=== PATIENT | male | born 1970 | race Caucasian/White ===

== ENCOUNTER 2024-12-24 13:19 | Inpatient (IN) | payer MEDICAID ==
[~2024-12-24] VITALS: Ht 175.3 cm; Wt 67.6 kg
[2024-12-24 14:50] LABS: BASOPHILS # (AUTO) 0.1 X10'3 (0-0.2); BASOPHILS % (AUTO) 1.1 % (0-1); EOSINOPHILS # (AUTO) 0.1 X10'3 (0-0.9); EOSINOPHILS % (AUTO) 1.3 % (0-6); HEMATOCRIT 41.1 % (42.0-52.0); HEMOGLOBIN 12.9 g/dl (14.0-17.9); LYMPHOCYTES # (AUTO) 0.7 X10'3 (1.1-4.8); LYMPHOCYTES % (AUTO) 6.3 % (21-51); MEAN CORPUSCULAR HEMOGLOBIN 31.5 PG (27.0-31.0); MEAN CORPUSCULAR HGB CONC 31.5 g/dL (33.0-36.5); MEAN CORPUSCULAR VOLUME 99.7 FL (78-98); MEAN PLATELET VOLUME 8.8 FL (7.4-10.4); MONOCYTES # (AUTO) 1.1 X10'3 (0-0.9); MONOCYTES % (AUTO) 9.7 % (2-12); NEUTROPHILS # (AUTO) 9.3 X10'3 (1.8-7.7); NEUTROPHILS % (AUTO) 81.6 % (42-75); PLATELET COUNT 177 X10'3 (140-440); RED BLOOD COUNT 4.12 X10'6 (4.70-6.10); RED CELL DISTRIBUTION WIDTH 16.6 % (11.5-14.5); WHITE BLOOD COUNT 11.3 X10'3 (4.5-11.0)
[2024-12-24 14:56] LABS: BILIRUBIN,URINE NEGATIVE (Neg); CLARITY,URINE CLEAR (Clear); COLOR,URINE YELLOW (Yellow); GLUCOSE, URINE NEGATIVE (Neg); KETONES,URINE TRACE mg/dl (Neg); LEUKOCYTE ESTERASE ,URINE NEGATIVE (Neg); NITRITES, URINE NEGATIVE (Neg); OCCULT BLOOD,URINE MODERATE (Neg); PH,URINE 5.5 (4.8-8.0); PROTEIN,URINE 100 mg/dl (Neg); UROBILINOGEN,URINE 0.2 E.U/dL (0.2-1.0)
[2024-12-24 14:58] LABS: UA COLLECTION TYPE VOIDED
[2024-12-24 14:59] LABS: AMORPHOUS URATES 1+; BACTERIA,URINE NONE SEEN /HPF (Neg); MUCUS STRANDS FEW /LPF (Neg); SQUAMOUS EPITHELIAL CELL,UR FEW /LPF (FEW); WBC,URINE 0-4 /HPF (0-4)
[2024-12-24 15:05] LABS: ALANINE AMINOTRANSFERASE 67 U/L (12-78); ALBUMIN 3.2 G/DL (3.4-5.0); ALBUMIN/GLOBULIN RATIO 0.8 (1.1-1.5); ALKALINE PHOSPHATASE 172 IU/L (46-116); ANION GAP 4 (8-16); ASPARTATE AMINO TRANSFERASE 46 U/L (10-37); BILIRUBIN,TOTAL 0.7 MG/DL (0.1-1.0); BLOOD UREA NITROGEN 71 MG/DL (7-18); BUN/CREATININE RATIO 23.7 (10.0-20.0); CALCIUM 8.8 MG/DL (8.5-10.1); CHLORIDE 94 MMOL/L (99-107); GLUCOSE 155 MG/DL (70-104); POTASSIUM 5.8 MMOL/L (3.5-5.1); SODIUM 129 MMOL/L (135-145); TOTAL CARBON DIOXIDE 31.1 MMOL/L (24-32); TOTAL PROTEIN 7.3 G/DL (6.4-8.2); eCRCL 27 ML/MIN; eGFR 22 ML/MIN
[2024-12-24 15:12] LABS: PRO BRAIN NATRIURETIC PEPTIDE 8101 PG/ML (0-125)
[2024-12-24] MEDS ORDERED: acetaminophen 325mg tablet PO PRN (17:30)
[2024-12-24] MEDS ORDERED: magnesium sulf-water 4G/100mL 100 ML IV PRN (17:30)
[2024-12-24] MEDS ORDERED: magnesium sulf-water 2g/50mL 50 ML IV PRN (17:30)
[2024-12-24] MEDS ORDERED: ondansetron/PF 4mg/2ml inj IV PRN (17:30)
[2024-12-24] MEDS ORDERED: potassium Cl 40MEQ/1/2NS 520ml 520 ML IV PRN (17:30)
[2024-12-24] MEDS ORDERED: magnesium Cl slow-release 64mg tablet PO PRN (17:30)
[2024-12-24] MEDS ORDERED: potassium Cl 20 mEq SR tablet PO PRN ×2 (17:30)
[2024-12-24] MEDS: CALCIUM GLUC 1gm/50ml NACL,iso 50 ML IV ONE (18:20)
[2024-12-24] MEDS: dextrose 50%-water 50ml dispensing syringe IV ONE (18:20)
[2024-12-24] MEDS: insulin regular, human 10 units/0.1 ml syringe SQ ONE (18:22)
[2024-12-24] MEDS: albuterol 2.5 MG/3 ML nebule NEB ONE (18:29)
[2024-12-24 18:33] VITALS: PULSE 86; RESP 18; O2SAT 95
[2024-12-24 18:37] VITALS: PULSE 87; RESP 20; O2SAT 100
[2024-12-24] MEDS: normal saline 1000ml 1,000 ML IV SCH (18:37)
[2024-12-24] MEDS: CefTRIAXone/D5W-Rocephin 1gm 50 ML IV SCH (19:23)
[2024-12-24] MEDS: heparin, porcine 5000 units/ml vial SQ SCH (19:27)
[2024-12-24] MEDS: furosemide 10 MG/1 ML 10ml inj IV SCH (19:31)
[2024-12-24 19:52] LABS: APTT 31 SECONDS (22-32); INR 1.3 INR; PROTHROMBIN TIME 13.7 SECONDS (9.0-12.0)
[2024-12-24] MEDS: acetaminophen 325mg tablet PO SCH (23:58)
[2024-12-25] VITALS (13 sets, daily range): BP systolic 87–124; BP diastolic 58–90; PULSE 80–89; RESP 10–18; TEMP 97.2–98; O2SAT 92–99
[2024-12-25] MEDS ORDERED: albuterol 2.5 MG/3 ML nebule NEB PRN (05:45)
[2024-12-25 09:20] LABS: BASOPHILS % (AUTO) 0.1 % (0-1); EOSINOPHILS # (AUTO) 0.1 X10'3 (0-0.9); EOSINOPHILS % (AUTO) 1.1 % (0-6); HEMATOCRIT 39.3 % (42.0-52.0); LYMPHOCYTES # (AUTO) 0.7 X10'3 (1.1-4.8); LYMPHOCYTES % (AUTO) 6.6 % (21-51); MEAN CORPUSCULAR HEMOGLOBIN 32.3 PG (27.0-31.0); MEAN CORPUSCULAR VOLUME 97.7 FL (78-98); MEAN PLATELET VOLUME 8.1 FL (7.4-10.4); MONOCYTES % (AUTO) 8.8 % (2-12); NEUTROPHILS # (AUTO) 9.1 X10'3 (1.8-7.7); NEUTROPHILS % (AUTO) 83.4 % (42-75); PLATELET COUNT 181 X10'3 (140-440); RED BLOOD COUNT 4.02 X10'6 (4.70-6.10); RED CELL DISTRIBUTION WIDTH 15.9 % (11.5-14.5); WHITE BLOOD COUNT 10.9 X10'3 (4.5-11.0)
[2024-12-25 09:31] LABS: ALANINE AMINOTRANSFERASE 61 U/L (12-78); ALBUMIN 3.1 G/DL (3.4-5.0); ALBUMIN/GLOBULIN RATIO 0.8 (1.1-1.5); ALKALINE PHOSPHATASE 166 IU/L (46-116); ANION GAP 5 (8-16); BILIRUBIN,TOTAL 0.9 MG/DL (0.1-1.0); BLOOD UREA NITROGEN 75 MG/DL (7-18); CHLORIDE 96 MMOL/L (99-107); CHOL/HDL RATIO 2.9 (0.00-4.99); CHOLESTEROL 157 MG/DL (0-200); CREATININE 2.88 MG/DL (0.60-1.10); GLUCOSE 105 MG/DL (70-104); HDL CHOLESTEROL 54 MG/DL (35-60); LACTATE DEHYDROGENASE 253 U/L (85-227); LDL CHOLESTEROL 87 MG/DL (50-100); POTASSIUM 5.8 MMOL/L (3.5-5.1); SODIUM 132 MMOL/L (135-145); TOTAL CARBON DIOXIDE 30.8 MMOL/L (24-32); TOTAL PROTEIN 7.2 G/DL (6.4-8.2); TRIGLYCERIDES 46 MG/DL (20-135); eCRCL 29 ML/MIN; eGFR 23 ML/MIN
[2024-12-25 09:32] LABS: ASPARTATE AMINO TRANSFERASE 38 U/L (10-37)
[2024-12-25] MEDS ORDERED: albuterol 2.5 MG/3 ML nebule NEB ONE (10:10)
[2024-12-25 11:05] LABS: HIV ANTIBODY 1&2 RAPID NON-REACTIVE (Neg)
[2024-12-25 13:00] LABS: GLUCOSE,BODY FLUID 108 MG/DL; LDH,BODY FLUID 80 U/L
[2024-12-25 13:08] LABS: BFSOURCE PLEURAL FLD; PLEURAL FLUID PH 7.405 (7.63-7.65)
[2024-12-25 13:18] LABS: TOTAL PROTEIN,BODY FLUID < 2.0 G/DL
[2024-12-25 13:20] LABS: BF RBC COUNT 920 /CU MM; BF WBC COUNT 360 /CU MM (0-1000); BFAPPEAR HAZY; BFCOLOR YELLOW; BFSOURCE PLEURAL FLD; BFVOLUME 55 ML; LYMPHOCYTES,BODY FLUID 46 %; MONOCYTES,BODY FLUID 24 %; NEUTROPHILS,BODY FLUID 30 %
[2024-12-25 13:21] LABS: BF MESOTHELIAL CELLS MODERATE
[2024-12-25] MEDS: CefTRIAXone/D5W-Rocephin 1gm 50 ML IV SCH (20:28)
[2024-12-25] MEDS: carVEDilol 3.125mg tablet PO SCH (20:49)
[2024-12-25] MEDS: dextrose 50%-water 50ml dispensing syringe IV ONE (21:22)
[2024-12-25] MEDS: sodium polystyrene sulfonate 15gm/60ml oral suspension PO ONE (21:32)
[2024-12-25] MEDS: CALCIUM GLUC 1gm/50ml NACL,iso 50 ML IV ONE (21:32)
[2024-12-25] MEDS: insulin regular, human 10 units/0.1 ml syringe IV ONE (21:43)
[2024-12-26] VITALS (10 sets, daily range): BP systolic 98–122; BP diastolic 60–84; PULSE 86–97; RESP 13–20; TEMP 97.3–97.8; O2SAT 90–100
[2024-12-26 08:38] LABS: BASOPHILS # (AUTO) 0.1 X10'3 (0-0.2); BASOPHILS % (AUTO) 1.1 % (0-1); EOSINOPHILS # (AUTO) 0.2 X10'3 (0-0.9); EOSINOPHILS % (AUTO) 1.3 % (0-6); HEMATOCRIT 42.8 % (42.0-52.0); HEMOGLOBIN 13.7 g/dl (14.0-17.9); LYMPHOCYTES # (AUTO) 0.6 X10'3 (1.1-4.8); LYMPHOCYTES % (AUTO) 4.8 % (21-51); MEAN CORPUSCULAR HEMOGLOBIN 31.7 PG (27.0-31.0); MEAN CORPUSCULAR HGB CONC 32.1 g/dL (33.0-36.5); MEAN CORPUSCULAR VOLUME 98.9 FL (78-98); MONOCYTES # (AUTO) 1.6 X10'3 (0-0.9); MONOCYTES % (AUTO) 12.9 % (2-12); NEUTROPHILS # (AUTO) 10.1 X10'3 (1.8-7.7); NEUTROPHILS % (AUTO) 79.9 % (42-75); PLATELET COUNT 148 X10'3 (140-440); RED BLOOD COUNT 4.32 X10'6 (4.70-6.10); RED CELL DISTRIBUTION WIDTH 16.4 % (11.5-14.5); WHITE BLOOD COUNT 12.6 X10'3 (4.5-11.0)
[2024-12-26 09:10] LABS: ALANINE AMINOTRANSFERASE 56 U/L (12-78); ALBUMIN 2.8 G/DL (3.4-5.0); ALBUMIN/GLOBULIN RATIO 0.7 (1.1-1.5); ALKALINE PHOSPHATASE 162 IU/L (46-116); ANION GAP 9 (8-16); ASPARTATE AMINO TRANSFERASE 47 U/L (10-37); BLOOD UREA NITROGEN 77 MG/DL (7-18); BUN/CREATININE RATIO 24.4 (10.0-20.0); CHLORIDE 96 MMOL/L (99-107); CREATININE 3.15 MG/DL (0.60-1.10); GLUCOSE 82 MG/DL (70-104); POTASSIUM 5.8 MMOL/L (3.5-5.1); SODIUM 133 MMOL/L (135-145); TOTAL CARBON DIOXIDE 28.2 MMOL/L (24-32); TOTAL PROTEIN 6.7 G/DL (6.4-8.2); eCRCL 26 ML/MIN; eGFR 21 ML/MIN
[2024-12-26 09:35] LABS: ANTINUCLEAR ANTIBODIES Negative (Negative)
[2024-12-26 10:35] LABS: SODIUM,URINE RANDOM < 15 MEQ/L; TOTAL PROTEIN,URINE RANDOM 96.1 MG/DL
[2024-12-26] MEDS: insulin regular, human 10 units/0.1 ml syringe IV ONE (12:39)
[2024-12-26] MEDS: dextrose 50%-water 50ml dispensing syringe IV ONE (12:40)
[2024-12-26] MEDS: sodium polystyrene sulfonate 15gm/60ml oral suspension PO ONE (12:40)
[2024-12-26] MEDS: albuterol 2.5 MG/3 ML nebule NEB ONE (12:44)
[2024-12-26] MEDS: SODIUM ZIRCONIUM CYCLOSILICATE 10 GM POWD.PACK PO SCH (17:09)
[2024-12-26] MEDS: azithromycin/NS 500mg/250ml 250 ML IV SCH (17:10)
[2024-12-26 17:13] LABS: ALBUMIN 2.2 G/DL (3.4-5.0); ANION GAP 9 (8-16); BLOOD UREA NITROGEN 76 MG/DL (7-18); BUN/CREATININE RATIO 23.2 (10.0-20.0); CALCIUM 8.4 MG/DL (8.5-10.1); CHLORIDE 96 MMOL/L (99-107); CREATININE 3.27 MG/DL (0.60-1.10); GLUCOSE 80 MG/DL (70-104); POTASSIUM 4.5 MMOL/L (3.5-5.1); SODIUM 130 MMOL/L (135-145); TOTAL CARBON DIOXIDE 24.9 MMOL/L (24-32); eCRCL 25 ML/MIN; eGFR 20 ML/MIN
[2024-12-26] MEDS ORDERED: apixaban 5mg tablet PO SCH (20:00)
[2024-12-26] MEDS ORDERED: furosemide 20 MG/2 ML vial IV SCH (20:00)
[2024-12-26] MEDS: heparin, porcine 5000 units/ml vial SQ SCH (21:19)
[2024-12-27] VITALS (13 sets, daily range): BP systolic 102–135; BP diastolic 66–97; PULSE 77–104; RESP 12–21; TEMP 97.5–98.6; O2SAT 94–97
[2024-12-27 05:42] LABS: ANTISTREPTOLYSIN O AB 52.7 IU/mL (0.0-200.0); HEP A AB, IGM Negative (Negative); HEP B CORE AB, IGM Negative (Negative); HEPATITIS C VIRUS ANTIBODY Non Reactive (Non Reactive)
[2024-12-27 07:54] LABS: BASOPHILS # (AUTO) 0.3 X10'3 (0-0.2); EOSINOPHILS # (AUTO) 0.2 X10'3 (0-0.9); EOSINOPHILS % (AUTO) 2.1 % (0-6); HEMATOCRIT 38.4 % (42.0-52.0); HEMOGLOBIN 12.5 g/dl (14.0-17.9); LYMPHOCYTES # (AUTO) 0.6 X10'3 (1.1-4.8); LYMPHOCYTES % (AUTO) 7.1 % (21-51); MEAN CORPUSCULAR HEMOGLOBIN 31.6 PG (27.0-31.0); MEAN CORPUSCULAR HGB CONC 32.6 g/dL (33.0-36.5); MEAN CORPUSCULAR VOLUME 96.9 FL (78-98); MEAN PLATELET VOLUME 7.9 FL (7.4-10.4); MONOCYTES # (AUTO) 0.9 X10'3 (0-0.9); MONOCYTES % (AUTO) 11.1 % (2-12); NEUTROPHILS # (AUTO) 6.5 X10'3 (1.8-7.7); NEUTROPHILS % (AUTO) 76.4 % (42-75); PLATELET COUNT 177 X10'3 (140-440); RED BLOOD COUNT 3.96 X10'6 (4.70-6.10); RED CELL DISTRIBUTION WIDTH 15.8 % (11.5-14.5); WHITE BLOOD COUNT 8.5 X10'3 (4.5-11.0)
[2024-12-27] MEDS ORDERED: furosemide 20 MG/2 ML vial IV SCH (08:00)
[2024-12-27] MEDS ORDERED: albumin (human) 25% 100ml IV 100 ML IV ONE (08:10)
[2024-12-27 08:48] LABS: BASOPHILS % (AUTO) 2.1 % (0-1)
[2024-12-27 08:57] LABS: ALANINE AMINOTRANSFERASE 46 U/L (12-78); ALBUMIN 2.5 G/DL (3.4-5.0); ALBUMIN/GLOBULIN RATIO 0.7 (1.1-1.5); ALKALINE PHOSPHATASE 136 IU/L (46-116); ANION GAP 9 (8-16); ASPARTATE AMINO TRANSFERASE 37 U/L (10-37); BILIRUBIN,TOTAL 0.9 MG/DL (0.1-1.0); BLOOD UREA NITROGEN 79 MG/DL (7-18); BUN/CREATININE RATIO 24.5 (10.0-20.0); CALCIUM 8.7 MG/DL (8.5-10.1); CHLORIDE 94 MMOL/L (99-107); CREATININE 3.23 MG/DL (0.60-1.10); GLUCOSE 85 MG/DL (70-104); POTASSIUM 3.9 MMOL/L (3.5-5.1); SODIUM 134 MMOL/L (135-145); TOTAL CARBON DIOXIDE 30.7 MMOL/L (24-32); TOTAL PROTEIN 6.3 G/DL (6.4-8.2); eCRCL 26 ML/MIN; eGFR 20 ML/MIN
[2024-12-27] MEDS: albumin (human) 25% 100 ML IV solution IV ONE (09:14)
[2024-12-27 12:47] LABS: PHOSPHORUS 5.4 MG/DL (2.3-4.5)
[2024-12-27 13:07] LABS: % IRON SATURATION 19 % (11-46); IRON 44 UG/DL (53-167); TOTAL IRON BINDING CAPACITY 230 UG/DL (259-388)
[2024-12-27 15:09] LABS: ATYPICAL PANCA <1:20 titer (Neg:<1:20); CYTOPLASMIC (C-ANCA) <1:20 titer (Neg:<1:20); PERINUCLEAR (P-ANCA) <1:20 titer (Neg:<1:20)
[2024-12-27] MEDS: furosemide 20 MG/2 ML vial IV ONE (17:44)
[2024-12-27] MEDS: DOBUTamine-DoBUTrex 500mg/D5W 250 ML IV SCH (17:49)
[2024-12-28] VITALS (14 sets, daily range): BP systolic 110–145; BP diastolic 72–103; PULSE 92–105; RESP 8–20; TEMP 97–98; O2SAT 94–100
[2024-12-28] MEDS: Melatonin 3mg tablet PO SCH ×2 (02:06→22:27)
[2024-12-28] MEDS: DOBUTamine-DoBUTrex 500mg/D5W 250 ML IV SCH (07:42)
[2024-12-28 10:06] LABS: BASOPHILS # (AUTO) 0.2 X10'3 (0-0.2); BASOPHILS % (AUTO) 2.7 % (0-1); EOSINOPHILS # (AUTO) 0.2 X10'3 (0-0.9); LYMPHOCYTES # (AUTO) 0.4 X10'3 (1.1-4.8); MEAN CORPUSCULAR VOLUME 97.9 FL (78-98); PLATELET COUNT 166 X10'3 (140-440)
[2024-12-28 10:08] LABS: EOSINOPHILS % (AUTO) 2.8 % (0-6); HEMATOCRIT 36.1 % (42.0-52.0); MEAN CORPUSCULAR HEMOGLOBIN 32.5 PG (27.0-31.0); MEAN CORPUSCULAR HGB CONC 33.3 g/dL (33.0-36.5); MEAN PLATELET VOLUME 7.6 FL (7.4-10.4); MONOCYTES # (AUTO) 0.7 X10'3 (0-0.9); MONOCYTES % (AUTO) 10.8 % (2-12); NEUTROPHILS # (AUTO) 4.9 X10'3 (1.8-7.7); NEUTROPHILS % (AUTO) 76.7 % (42-75); RED BLOOD COUNT 3.69 X10'6 (4.70-6.10); RED CELL DISTRIBUTION WIDTH 16.2 % (11.5-14.5); WHITE BLOOD COUNT 6.4 X10'3 (4.5-11.0)
[2024-12-28] MEDS: furosemide 10 MG/1 ML 10ml inj IV ONE (10:35)
[2024-12-28 10:46] LABS: ALANINE AMINOTRANSFERASE 40 U/L (12-78); ALBUMIN 2.8 G/DL (3.4-5.0); ALBUMIN/GLOBULIN RATIO 0.8 (1.1-1.5); ALKALINE PHOSPHATASE 124 IU/L (46-116); ANION GAP 6 (8-16); ASPARTATE AMINO TRANSFERASE 28 U/L (10-37); BILIRUBIN,TOTAL 0.7 MG/DL (0.1-1.0); BLOOD UREA NITROGEN 76 MG/DL (7-18); BUN/CREATININE RATIO 25.2 (10.0-20.0); CALCIUM 8.5 MG/DL (8.5-10.1); CHLORIDE 97 MMOL/L (99-107); CREATININE 3.01 MG/DL (0.60-1.10); GLUCOSE 154 MG/DL (70-104); POTASSIUM 3.6 MMOL/L (3.5-5.1); SODIUM 138 MMOL/L (135-145); TOTAL CARBON DIOXIDE 35.1 MMOL/L (24-32); TOTAL PROTEIN 6.3 G/DL (6.4-8.2); eCRCL 27 ML/MIN; eGFR 22 ML/MIN
[2024-12-28] MEDS: furosemide 40mg/4ml inj IV ONE (19:34)
[2024-12-28] MEDS: nicotine 14mg patch - 24hr TD SCH (22:28)
[2024-12-29] VITALS (10 sets, daily range): BP systolic 120–152; BP diastolic 75–102; PULSE 60–117; RESP 15–20; TEMP 97–98; O2SAT 95–98
[2024-12-29] MEDS: HYDROmorphone inj. 0.5 MG/0.5 ML DISP.SYRIN IV PRN (01:26)
[2024-12-29 06:17] LABS: BASOPHILS # (AUTO) 0.1 X10'3 (0-0.2); BASOPHILS % (AUTO) 1.9 % (0-1); EOSINOPHILS # (AUTO) 0.2 X10'3 (0-0.9); EOSINOPHILS % (AUTO) 3.8 % (0-6); HEMATOCRIT 35.6 % (42.0-52.0); HEMOGLOBIN 11.8 g/dl (14.0-17.9); LYMPHOCYTES # (AUTO) 0.4 X10'3 (1.1-4.8); LYMPHOCYTES % (AUTO) 6.5 % (21-51); MEAN CORPUSCULAR VOLUME 96.8 FL (78-98); MEAN PLATELET VOLUME 7.3 FL (7.4-10.4); MONOCYTES # (AUTO) 0.8 X10'3 (0-0.9); MONOCYTES % (AUTO) 13.3 % (2-12); NEUTROPHILS # (AUTO) 4.4 X10'3 (1.8-7.7); NEUTROPHILS % (AUTO) 74.5 % (42-75); PLATELET COUNT 163 X10'3 (140-440); RED BLOOD COUNT 3.68 X10'6 (4.70-6.10); RED CELL DISTRIBUTION WIDTH 16.2 % (11.5-14.5); WHITE BLOOD COUNT 5.9 X10'3 (4.5-11.0)
[2024-12-29 06:34] LABS: ALANINE AMINOTRANSFERASE 41 U/L (12-78); ALBUMIN 2.6 G/DL (3.4-5.0); ALBUMIN/GLOBULIN RATIO 0.7 (1.1-1.5); ALKALINE PHOSPHATASE 115 IU/L (46-116); ANION GAP 2 (8-16); ASPARTATE AMINO TRANSFERASE 41 U/L (10-37); BILIRUBIN,TOTAL 0.7 MG/DL (0.1-1.0); BLOOD UREA NITROGEN 68 MG/DL (7-18); BUN/CREATININE RATIO 21.1 (10.0-20.0); CALCIUM 8.4 MG/DL (8.5-10.1); CHLORIDE 98 MMOL/L (99-107); CREATININE 3.22 MG/DL (0.60-1.10); GLUCOSE 143 MG/DL (70-104); POTASSIUM 3.7 MMOL/L (3.5-5.1); SODIUM 138 MMOL/L (135-145); TOTAL CARBON DIOXIDE 37.6 MMOL/L (24-32); TOTAL PROTEIN 6.3 G/DL (6.4-8.2); eCRCL 26 ML/MIN; eGFR 20 ML/MIN
[2024-12-29] MEDS: furosemide 20 MG/2 ML vial IV SCH (08:07)
[2024-12-29] MEDS ORDERED: acetaminophen 325mg tablet PO PRN (10:40)
[2024-12-29] MEDS: metolazone 2.5mg tablet PO SCH (12:05)
[2024-12-29] MEDS: furosemide inj 100 MG in normal saline 100ml IV soln 90 ML IV SCH (12:26)
[2024-12-29] MEDS: carVEDilol 3.125mg tablet PO SCH (19:35)
[2024-12-29] MEDS: apixaban 5mg tablet PO SCH (19:36)
[2024-12-29] MEDS ORDERED: spironolactone 25 MG tablet PO SCH (20:00)
[2024-12-30] VITALS (9 sets, daily range): BP systolic 99–130; BP diastolic 64–88; PULSE 101–122; RESP 14–20; TEMP 97.6–98; O2SAT 96–100
[2024-12-30 05:45] LABS: FOLATE SERUM(FOLIC) 12.3 ng/mL (>3.0)
[2024-12-30 06:11] LABS: HBSAG SCREEN Negative (Negative)
[2024-12-30 12:55] LABS: EOSINOPHILS # (AUTO) 0.2 X10'3 (0-0.9); HEMOGLOBIN 13.4 g/dl (14.0-17.9); LYMPHOCYTES # (AUTO) 0.4 X10'3 (1.1-4.8); MEAN CORPUSCULAR HGB CONC 32.9 g/dL (33.0-36.5); MONOCYTES # (AUTO) 0.8 X10'3 (0-0.9); WHITE BLOOD COUNT 5.5 X10'3 (4.5-11.0)
[2024-12-30 12:56] LABS: BASOPHILS # (AUTO) 0.1 X10'3 (0-0.2); BASOPHILS % (AUTO) 2.3 % (0-1); EOSINOPHILS % (AUTO) 4.4 % (0-6); HEMATOCRIT 40.8 % (42.0-52.0); LYMPHOCYTES % (AUTO) 7.2 % (21-51); MEAN CORPUSCULAR VOLUME 97.1 FL (78-98); MEAN PLATELET VOLUME 7.5 FL (7.4-10.4); MONOCYTES % (AUTO) 14.3 % (2-12); NEUTROPHILS # (AUTO) 3.9 X10'3 (1.8-7.7); NEUTROPHILS % (AUTO) 71.8 % (42-75); PLATELET COUNT 147 X10'3 (140-440); RED CELL DISTRIBUTION WIDTH 16.6 % (11.5-14.5)
[2024-12-30 13:07] LABS: ALANINE AMINOTRANSFERASE 39 U/L (12-78); ALBUMIN 2.7 G/DL (3.4-5.0); ALBUMIN/GLOBULIN RATIO 0.7 (1.1-1.5); ALKALINE PHOSPHATASE 122 IU/L (46-116); ANION GAP 2 (8-16); ASPARTATE AMINO TRANSFERASE 43 U/L (10-37); BILIRUBIN,TOTAL 0.7 MG/DL (0.1-1.0); BLOOD UREA NITROGEN 60 MG/DL (7-18); BUN/CREATININE RATIO 21.1 (10.0-20.0); CALCIUM 8.3 MG/DL (8.5-10.1); CHLORIDE 94 MMOL/L (99-107); CREATININE 2.85 MG/DL (0.60-1.10); GLUCOSE 130 MG/DL (70-104); POTASSIUM 3.1 MMOL/L (3.5-5.1); SODIUM 137 MMOL/L (135-145); TOTAL PROTEIN 6.7 G/DL (6.4-8.2); eCRCL 29 ML/MIN; eGFR 23 ML/MIN
[2024-12-30] MEDS: spironolactone 25 MG tablet PO SCH (13:12)
[2024-12-30 13:15] LABS: TOTAL CARBON DIOXIDE 41.2 MMOL/L (24-32)
[2024-12-30 14:23] LABS: TOTAL PROTEIN 24HR,URINE 1638.8 MG/24HR (28-141); UREA NITROGEN 24HR,URINE 13.3 GM/24HR (7-20)
[2024-12-30] MEDS ORDERED: potassium Cl 40MEQ/1/2NS 520ml 520 ML IV PRN (14:25)
[2024-12-30] MEDS ORDERED: magnesium Cl slow-release 64mg tablet PO PRN (14:25)
[2024-12-30] MEDS ORDERED: magnesium sulf-water 4G/100mL 100 ML IV PRN (14:25)
[2024-12-30] MEDS ORDERED: magnesium sulf-water 2g/50mL 50 ML IV PRN (14:25)
[2024-12-30] MEDS: potassium Cl 20 mEq SR tablet PO PRN ×2 (14:34→17:12)
[2024-12-30] MEDS: K and/or MAG REPLACEMENT MC SCH (19:18)
[2024-12-31] VITALS (12 sets, daily range): BP systolic 96–128; BP diastolic 65–99; PULSE 102–120; RESP 11–16; TEMP 97.4–98.2; O2SAT 93–97
[2024-12-31 09:24] LABS: EOSINOPHILS # (AUTO) 0.3 X10'3 (0-0.9); LYMPHOCYTES # (AUTO) 0.6 X10'3 (1.1-4.8); MONOCYTES # (AUTO) 1.1 X10'3 (0-0.9)
[2024-12-31 09:26] LABS: BASOPHILS # (AUTO) 0.1 X10'3 (0-0.2); BASOPHILS % (AUTO) 2.6 % (0-1); EOSINOPHILS % (AUTO) 4.5 % (0-6); HEMATOCRIT 39.8 % (42.0-52.0); HEMOGLOBIN 13.3 g/dl (14.0-17.9); LYMPHOCYTES % (AUTO) 11.4 % (21-51); MEAN CORPUSCULAR HEMOGLOBIN 32.3 PG (27.0-31.0); MEAN CORPUSCULAR HGB CONC 33.5 g/dL (33.0-36.5); MEAN CORPUSCULAR VOLUME 96.6 FL (78-98); MONOCYTES % (AUTO) 18.6 % (2-12); NEUTROPHILS # (AUTO) 3.6 X10'3 (1.8-7.7); NEUTROPHILS % (AUTO) 62.9 % (42-75); PLATELET COUNT 167 X10'3 (140-440); RED BLOOD COUNT 4.12 X10'6 (4.70-6.10); RED CELL DISTRIBUTION WIDTH 16.7 % (11.5-14.5); WHITE BLOOD COUNT 5.7 X10'3 (4.5-11.0)
[2024-12-31 09:28] LABS: ALANINE AMINOTRANSFERASE 46 U/L (12-78); ALBUMIN 2.8 G/DL (3.4-5.0); ALBUMIN/GLOBULIN RATIO 0.7 (1.1-1.5); ALKALINE PHOSPHATASE 116 IU/L (46-116); ANION GAP 1 (8-16); ASPARTATE AMINO TRANSFERASE 51 U/L (10-37); BLOOD UREA NITROGEN 55 MG/DL (7-18); BUN/CREATININE RATIO 21.7 (10.0-20.0); CALCIUM 9.1 MG/DL (8.5-10.1); CHLORIDE 93 MMOL/L (99-107); CREATININE 2.54 MG/DL (0.60-1.10); GLUCOSE 91 MG/DL (70-104); POTASSIUM 4.1 MMOL/L (3.5-5.1); SODIUM 139 MMOL/L (135-145); TOTAL PROTEIN 6.6 G/DL (6.4-8.2); eCRCL 32 ML/MIN; eGFR 26 ML/MIN
[2024-12-31 09:29] LABS: TOTAL CARBON DIOXIDE 44.9 MMOL/L (24-32)
[2024-12-31] MEDS: acetaZOLAMIDE IV 500mg inj IV SCH (10:28)
[2024-12-31] MEDS: metoprolol tartrate 1mg/ml inj IV ONE (21:25)
[2025-01-01] VITALS (15 sets, daily range): BP systolic 93–142; BP diastolic 64–84; PULSE 108–118; RESP 8–18; TEMP 97.5–98.4; O2SAT 93–98
[2025-01-01] MEDS: metolazone 2.5mg tablet PO SCH (07:28)
[2025-01-01 09:49] LABS: BASOPHILS # (AUTO) 0.1 X10'3 (0-0.2); BASOPHILS % (AUTO) 2.6 % (0-1); EOSINOPHILS # (AUTO) 0.3 X10'3 (0-0.9); EOSINOPHILS % (AUTO) 5.4 % (0-6); HEMOGLOBIN 12.6 g/dl (14.0-17.9); LYMPHOCYTES # (AUTO) 0.7 X10'3 (1.1-4.8); MEAN CORPUSCULAR HEMOGLOBIN 31.9 PG (27.0-31.0); MEAN CORPUSCULAR HGB CONC 33.2 g/dL (33.0-36.5); MEAN PLATELET VOLUME 7.6 FL (7.4-10.4); MONOCYTES % (AUTO) 17.2 % (2-12); NEUTROPHILS # (AUTO) 3.5 X10'3 (1.8-7.7); NEUTROPHILS % (AUTO) 62.8 % (42-75); PLATELET COUNT 182 X10'3 (140-440); RED BLOOD COUNT 3.96 X10'6 (4.70-6.10); RED CELL DISTRIBUTION WIDTH 16.3 % (11.5-14.5); WHITE BLOOD COUNT 5.5 X10'3 (4.5-11.0)
[2025-01-01 13:38] LABS: ALANINE AMINOTRANSFERASE 54 U/L (12-78); ALBUMIN 2.8 G/DL (3.4-5.0); ALBUMIN/GLOBULIN RATIO 0.8 (1.1-1.5); ALKALINE PHOSPHATASE 114 IU/L (46-116); ANION GAP 3 (8-16); ASPARTATE AMINO TRANSFERASE 58 U/L (10-37); BILIRUBIN,TOTAL 0.8 MG/DL (0.1-1.0); BLOOD UREA NITROGEN 61 MG/DL (7-18); CALCIUM 9.3 MG/DL (8.5-10.1); CHLORIDE 91 MMOL/L (99-107); CREATININE 2.65 MG/DL (0.60-1.10); GLUCOSE 95 MG/DL (70-104); POTASSIUM 3.9 MMOL/L (3.5-5.1); SODIUM 138 MMOL/L (135-145); TOTAL PROTEIN 6.3 G/DL (6.4-8.2); eCRCL 31 ML/MIN; eGFR 25 ML/MIN
[2025-01-01 13:56] LABS: TOTAL CARBON DIOXIDE 44.5 MMOL/L (24-32)
[2025-01-01 21:58] LABS: ALBUMIN 3.1 G/DL (3.4-5.0); BLOOD UREA NITROGEN 65 MG/DL (7-18); BUN/CREATININE RATIO 19.9 (10.0-20.0); CALCIUM 9.9 MG/DL (8.5-10.1); CHLORIDE 90 MMOL/L (99-107); CREATININE 3.26 MG/DL (0.60-1.10); GLUCOSE 122 MG/DL (70-104); MAGNESIUM 1.8 MG/DL (1.5-2.4); PHOSPHORUS 5.2 MG/DL (2.3-4.5); POTASSIUM 4.2 MMOL/L (3.5-5.1); SODIUM 137 MMOL/L (135-145); eCRCL 25 ML/MIN; eGFR 20 ML/MIN
[2025-01-01 22:02] LABS: ANION GAP 2 (8-16)
[2025-01-02] VITALS (9 sets, daily range): BP systolic 95–112; BP diastolic 66–91; PULSE 105–118; RESP 11–14; TEMP 98.3; O2SAT 96
[2025-01-02 04:26] LABS: ALBUMIN 3.1 G/DL (3.4-5.0); ANION GAP 3 (8-16); BLOOD UREA NITROGEN 68 MG/DL (7-18); BUN/CREATININE RATIO 23.6 (10.0-20.0); CALCIUM 9.7 MG/DL (8.5-10.1); CHLORIDE 91 MMOL/L (99-107); CREATININE 2.88 MG/DL (0.60-1.10); GLUCOSE 121 MG/DL (70-104); MAGNESIUM 1.9 MG/DL (1.5-2.4); PHOSPHORUS 5.3 MG/DL (2.3-4.5); SODIUM 138 MMOL/L (135-145); eCRCL 29 ML/MIN; eGFR 23 ML/MIN
[2025-01-02 12:06] LABS: ALBUMIN 3.5 G/DL (3.4-5.0); ANION GAP 5 (8-16); BLOOD UREA NITROGEN 64 MG/DL (7-18); BUN/CREATININE RATIO 22.8 (10.0-20.0); CHLORIDE 89 MMOL/L (99-107); CREATININE 2.81 MG/DL (0.60-1.10); GLUCOSE 66 MG/DL (70-104); POTASSIUM 3.3 MMOL/L (3.5-5.1); SODIUM 138 MMOL/L (135-145); eCRCL 28 ML/MIN; eGFR 23 ML/MIN
[2025-01-02 12:17] LABS: TOTAL CARBON DIOXIDE 44.2 MMOL/L (24-32)
== END 2025-01-02 14:08 | DRG 280 ==
LOC: ER 13:19 → ED HOLD 17:31 → PCU 3S 12-25 00:46
PROVIDERS: ADMIT Internal Medicine; ATTEND Internal Medicine
PROC: 0W993ZZ Drainage of Right Pleural Cavity, Percutaneous Approach (ICD-10-PCS; principal; 2024-12-25)
PROC: 05HY33Z Insertion of Infusion Device into Upper Vein, Percutaneous Approach (ICD-10-PCS; 2024-12-26)
PROC: B54MZZA Ultrasonography of Right Upper Extremity Veins, Guidance (ICD-10-PCS; 2024-12-26)
DX: K70.31 Alcoholic cirrhosis of liver with ascites (principal); J96.01 Acute respiratory failure with hypoxia; N17.9 Acute kidney failure, unspecified; I50.23 Acute on chronic systolic (congestive) heart failure; E87.3 Alkalosis; J91.8 Pleural effusion in other conditions classified elsewhere; N18.9 Chronic kidney disease, unspecified; I48.91 Unspecified atrial fibrillation; J44.9 Chronic obstructive pulmonary disease, unspecified; F17.210 Nicotine dependence, cigarettes, uncomplicated; N48.89 Other specified disorders of penis; E87.5 Hyperkalemia; N43.3 Hydrocele, unspecified; I07.1 Rheumatic tricuspid insufficiency; N50.89 Other specified disorders of the male genital organs; Z79.899 Other long term (current) drug therapy; E87.6 Hypokalemia
CPT/HCPCS: 32555; 36410; 36415; 71045; 74176; 76705; 76770; 76937; 80048; 80053; 80061; 80069; 81001; 82140; 82570; 82607; 82746; 82945; 82948; 83540; 83550; 83605; 83615; 83735; 83880; 83986; 84100; 84133; 84145; 84156; 84157; 84300; 84484; 84560; 85025; 85610; 85651; 85730; 86038; 86060; 86256; 86703; 86705; 86709; 86803; 87040; 87070; 87075; 87081; 87207; 87340; 87522; 89051; 93005; 93306; 94640; 94760; 97116; 97161; 97530; 99285; A4615; A6212; A6213; A6250; A6258; C1751; G0378; J0456; J0610; J0696; J1120; J1171; J1250; J1644; J1815; J1940; J3490; J7030; J7040; P9047